=== PATIENT | female | born 1990 | race Caucasian/White ===

== ENCOUNTER 2020-12-31 20:25 | Emergency (ER) | payer SELFPAY ==
--- NOTE | ~2020-12-31 | XR_ITS ---
EXAMINATION: XR elbow RT min 3V DATE: 12/31/2020 21:00 INDICATION: Right elbow pain TECHNIQUE: Anteroposterior, two oblique and lateral views of the right elbow were obtained. COMPARISON: None. FINDINGS: Alignment is normal. No fracture or joint effusion. Joint spaces are normal. There is soft tissue swelling at the medial aspect of the elbow. IMPRESSION: 1. Soft tissue swelling without acute osseous abnormality. Reviewed, dictated and finalized at location A.
[2020-12-31 20:30] VITALS: BP 124/72; PULSE 108; RESP 18; TEMP 37.2; O2SAT 100
--- NOTE | 2020-12-31 20:46 | ED.UPPEXIN ---
HPI - Extremity Injury (Upper) General Chief Complaint: Extremity Injury, Upper Stated Complaint: Right arm pain, pulled by dog Time Seen by Provider: 12/31/20 20:44 Source: RN notes reviewed History of Present Illness HPI narrative: Patient presents emergency room from home for right elbow pain. Patient states that last night her dog jumped up on the bed she try to get the dog down and had hyperextended her right elbow in the process she notes pain in the right medial elbow since that time. States pain is worse with full extension of the right elbow she denies any wrist or shoulder pain states she is taken nothing for the pain at home she denies any numbness or tingling in the extremities or any other concern Related Data Allergies Allergy/AdvReac Type Severity Reaction Status Date / Time No Known Allergies Allergy Verified 12/31/20 21:21 Review of Systems Review of Systems: Gen.: Denies fevers or chills Musculoskeletal: See HPI Neuro: Denies numbness, tingling, weakness Skin: Denies rash Endo: Denies DM PMFSH Past Medical History Medical History (Updated 12/31/20 @ 21:29 by Edu Paris DO) Patient denies significant medical history Social History Social History (Updated 12/31/20 @ 20:47 by Edu Paris DO) Smoking status: Current every day smoker Exam Narrative: APPEARANCE: No acute distress, nontoxic, resting in bed Eyes: EOMI HEENT: Normocephalic, atraumatic, RESPIRATORY: No respiratory distress MUSCULOSKELETAl: Tender to palpation of the right medial elbow over the medial epicondyle pain with full extension of the elbow no tenderness over the posterior lateral elbow no tenderness of the right wrist or shoulder radial pulse 2+ neurovascular intact NEURO: Awake and alert. Following commands, speech normal, no focal deficits SKIN:: Warm, dry. Normal Color no rash or lesions Course Course Emergency Course: Discussed with patient results of workup and diagnosis. Discussed need for follow-up with primary care, proper use of medication, and reasons to return to the emergency department. Patient understands and agrees to current treatment plan Vital Signs Vital signs: Vital Signs Temperature 98.9 F 12/31/20 20:30 Pulse Rate 108 H 12/31/20 20:30 Respiratory Rate 18 12/31/20 20:30 Blood Pressure 124/72 12/31/20 20:30 Pulse Oximetry 100 12/31/20 20:30 Temperature 98.9 F 12/31/20 20:30 Pulse Rate 108 H 12/31/20 20:30 Respiratory Rate 18 12/31/20 20:30 Blood Pressure 124/72 12/31/20 20:30 Pulse Oximetry 100 12/31/20 20:30 MDM - Extremity Injury (Upper) Imaging Data Radiologist's impression: ITS Impressions Elbow X-Ray 12/31/20 21:12 IMPRESSION: 1. Soft tissue swelling without acute osseous abnormality. Discharge Plan Discharge Clinical Impression: Sprain of elbow, right Patient Disposition: Home, Self-Care Condition: Stable Instructions: Antibiotic Form, Elbow Sprain (ED) Additional Instructions: Return for increasing pain numbness or tingling in the extremity or any other symptoms of concern Prescriptions: New ibuprofen [IBU] 600 mg tablet 600 mg PO Q6H PRN (Reason: pain) Qty: 20 RF: 0 Follow-up/Referrals: Edu Singh MD [Physician] - (Follow-up in 1 to 2 days for further orthopedic treatment and evaluation) PHYSICIAN,FISH HOUSEKEEPER [Primary Care Provider] - Time of Disposition: 21:29
[2020-12-31] MEDS: IBUPROFEN 600 MG TABLET PO (21:29)
[2020-12-31 21:57] VITALS: BP 110/75; PULSE 104; RESP 20; TEMP 36.6; O2SAT 100
== END 2020-12-31 21:45 | disposition home or self-care (01) ==
PROVIDERS: Emergency Provider Emergency Medicine
DX: S53.401A Unspecified sprain of right elbow, initial encounter (principal); X50.0XXA Overexertion from strenuous movement or load, initial encounter; F17.210 Nicotine dependence, cigarettes, uncomplicated
CPT/HCPCS: 73080; 99283; A4565; A9270

== ENCOUNTER 2021-08-16 17:47 | Observation (INO) | payer OTHER, SELFPAY ==
--- NOTE | ~2021-08-16 | CT_ITS ---
EXAMINATION: CT abdomen pelvis w con DATE: 08/16/2021 21:58 INDICATION: Abdomen pain TECHNIQUE: Computed tomography (CT) of the abdomen and pelvis was performed with 100 cc Omnipaque 350 intravenous contrast. The dose-length product was 274.53 mGy-cm. Automated exposure control and iter ative reconstruction technique were employed. COMPARISON: None. FINDINGS: Lung bases are unremarkable. Heart size normal. No significant pleural or pericardial effus ion. No significant vascular abnormality. No lymphadenopathy. There is a thickened retrocecal appendi x with mild surrounding inflammation, consistent with acute appendicitis. No evidence for perforation or abscess. The liver, spleen, pancreas, adrenal glands and kidneys are unremarkable. No acute osseous abnormalit y. No lytic or blastic lesions. IMPRESSION: 1. Acute uncomplicated appendicitis. Reviewed, dictated and finalized at location B.
[2021-08-16 17:49] VITALS: BP 116/72; PULSE 52; RESP 14; TEMP 36.6; O2SAT 100
--- NOTE | 2021-08-16 18:32 | ED.ABDPAIN ---
HPI - Abdominal Pain General Chief Complaint: Abdominal Pain Stated Complaint: drinking last night/ n/v Time Seen by Provider: 08/16/21 18:15 History of Present Illness HPI narrative: 31-year-old female presents the emergency room with complaints of right lower quadrant abdominal pain and nausea vomiting since early this morning. Patient states that she had multiple alcoholic drinks last night, several hours later developed nausea vomiting with some abdominal cramping. Last menses was last week. States menstrual cycles are irregular. No concerns over STDs. Denies fever. Denies diarrhea or constipation. Related Data Home Medications Medication Instructions Recorded Confirmed No Home Medications 08/16/21 08/16/21 Allergies Allergy/AdvReac Type Severity Reaction Status Date / Time No Known Allergies Allergy Verified 08/16/21 17:48 Review of Systems Review of Systems: CONSTITUTIONAL: Denies fever, chills, or sweats. EYES: Denies visual changes, redness, or discharge. ENT: Denies rhinorrhea, congestion, sore throat, or otalgia. CARDIOVASCULAR: Denies chest pain, palpitations, or edema. RESPIRATORY: Denies cough or dyspnea. GASTROINTESTINAL: Reports lower abdominal pain, nausea, and vomiting GENITOURINARY: Denies dysuria or hematuria. SKIN: Denies rash or itching. MUSCULOSKELETAL: Denies back pain, joint pain, or myalgia. NEUROLOGIC: Denies headache, numbness, dizziness, or weakness. PSYCHIATRIC: Denies anxiety or depression. PMFSH Past Medical History Medical History Patient denies significant medical history Social History Social History Smoking status: Current every day smoker Exam Narrative: GENERAL: Well-appearing, well-nourished, and in no acute distress. HEAD: Normocephalic, atraumatic. EYES: PERRLA and EOMI. ENT: Nares clear, no rhinorrhea or epistaxis. Mucous membranes moist. Oropharynx without tonsillar hypertrophy exudate or other lesions. Bilateral TMs pearly irizarry nonbulging NECK: Supple. No adenopathy or masses. No carotid bruits or JVD CHEST: Clear to auscultation. No respiratory distress. No wheezes rales or rhonchi HEART: Regular rate and rhythm. No murmur heard. Normal peripheral pulses. ABDOMEN: Right lower quadrant pain, no rebound tenderness, negative heel strike, no psoas or obturator signs, no McBurney point tenderness, normal active bowel sounds. EXTREMITIES: Normal range of motion. No edema. SKIN: Warm, dry, no rash. NEURO: No focal deficits. Alert and oriented x3. PSYCH: Normal mood and affect. Course Course Emergency Course: 5: Spoke with Dr. Hernandez. He states he wants patient admitted for him and will follow her in the morning. Vital Signs Vital signs: Vital Signs Temperature 36.6 C 08/16/21 17:49 Pulse Rate 52 L 08/16/21 17:49 Respiratory Rate 14 08/16/21 17:49 Blood Pressure 116/72 08/16/21 17:49 Pulse Oximetry 100 08/16/21 17:49 Temperature 36.6 C 08/16/21 17:49 Pulse Rate 52 L 08/16/21 17:49 Respiratory Rate 14 08/16/21 17:49 Blood Pressure 116/72 08/16/21 17:49 Pulse Oximetry 100 08/16/21 17:49 MDM - Abdominal Pain MDM Narrative Medical decision making narrative: 31-year-old female presented to the emergency room with acute onset of right lower quadrant pain associated with nausea vomiting. CAT scan shows an acute uncomplicated appendicitis. CBC shows a elevated white count 18.4, CMP unremarkable. Zosyn was given. Lab Data Attestation: I reviewed the patient's lab results. Result diagrams: 08/16/21 18:48 08/16/21 18:48 Labs: Lab Results 08/16/21 08/16/21 08/16/21 Range/Units 18:48 18:48 21:06 WBC 18.4 H (4.5-10.0) K/mm3 RBC 4.73 (4.2-5.4) M/mm3 Hgb 13.9 (12.0-15.0) g/dL Hct 43.5 (37.0-47.0) % MCV 92.0 (80-100) fl MCH 29.4 (26-34) pg MCHC 32.0
[2021-08-16] MEDS: SODIUM CHLORIDE 0.9% IV 1,000 ML 999 ML IV CONT (18:53)
[2021-08-16] MEDS: ONDANSETRON INJ 4 MG/2 ML VIAL IV PUSH (18:53)
[2021-08-16] MEDS: DICYCLOMINE HCL INJ 20 MG/2 ML VIAL IM (18:53)
[2021-08-16 18:55] LABS: Basophils Percent Auto 0.2 % (0.2-1.2); Hematocrit 43.5 % (37.0-47.0); Hemoglobin 13.9 g/dL (12.0-15.0); Immature Granulocyte Percent A 0.5 % (0-0.5); Lymphocytes Absolute Auto 0.63 K/mm3 (0.9-3.2); Lymphocytes Percent Auto 3.4 % (18.3-44.2); Mean Corpuscular Hemoglobin 29.4 pg (26-34); Mean Platelet Volume 9.6 fl (7.4-10.4); Monocytes Absolute Auto 0.4 K/mm3 (0.1-0.6); Monocytes Percent Auto 2.3 % (2.6-8.5); Neutrophils Absolute Auto 17.2 K/mm3 (1.3-6.7); Neutrophils Percent Auto 93.6 % (45.5-73.1); Platelet Count Result 344 k/mm3 (150-375); Red Blood Count 4.73 M/mm3 (4.2-5.4); Red Cell Distribution Width 14.7 % (11.5-14.5); White Blood Count 18.4 K/mm3 (4.5-10.0)
[2021-08-16 19:13] LABS: Alanine Aminotransferase 23 U/L (4-35); Albumin Level 4.6 g/dL (3.5-5.1); Alkaline Phosphatase 55 U/L (38-126); Anion Gap 7 mmol/L (8-16); Aspartate Amino Transferase 34 U/L (14-36); Bilirubin,Total 0.5 mg/dL (0.2-1.3); Blood Urea Nitrogen 10 mg/dL (7-17); Calcium 9.2 mg/dL (8.4-10.2); Carbon Dioxide 29 mmol/L (22-30); Chloride 104 mmol/L (98-107); Estimated CRCL calculation 92 ml/min; Estimated Glomerular Filt Rate > 60; Glucose 113 mg/dL (65-110); Lipase 36 U/L (23-300); Potassium 4.1 mmol/L (3.4-5.0); Sodium 140 mmol/L (137-145)
[2021-08-16 21:31] LABS: Add Urine Microscopic? YES; Appearance Urine Clear (Clear); Bilirubin Urine Negative (Negative); Blood Urine Negative (Negative); Color Urine Yellow (Yellow); Glucose Urine UA Negative (Negative); Ketones Urine 2+ mg/dL (Negative); Leukocyte Esterase Ur Negative LEU/UL (Negative); Mucus Urine Rare /lpf; Nitrate Urine Negative (Negative); Protein Urine 1+ mg/dL (Negative); RBC Urine 0-2 /hpf (0-2); Specific Grav Ur 1.024 (1.001-1.035); Squamous Epithelial Cell Urine Moderate /hpf (Few); Urobilinogen Urine Negative mg/dL (<2.0)
[2021-08-16 23:12] VITALS: BP 115/80; PULSE 66; O2SAT 100
[2021-08-16 23:13] VITALS: O2SAT 100
[2021-08-17] VITALS (18 sets, daily range): BP systolic 102–130; BP diastolic 52–82; PULSE 53–103; RESP 12–24; TEMP 36.4–37.2; O2SAT 96–100; BMI 23.5
[2021-08-17] MEDS: SODIUM CHLORIDE 0.9% IV 1,000 ML 125 ML IV CONT ×2 (00:32→08:37)
--- NOTE | 2021-08-17 00:52 | PC.NURSE ---
This patient, Toyin Hernández, was admitted to Medical Room 346-01. Patient/family oriented to hospital policies and general routines including ID bracelet, bed and alarms, visiting hours, pain management, procedures, bathroom and other care routines, personal items, smoking policy, room service/diet, and visiting hours. Information on how to activate the Rapid Response Team has been discussed. Patient/Family are encouraged to report perceived risks to care and to ask questions if they do not understand what they are told or what they should do.
--- NOTE | 2021-08-17 11:06 | PC.NURSE ---
Pt went down for surgery at 1106. Pt is A+O x 3. 20 G in LAC working with normal limit. SBAR report handed to the SOFTWARE DATABASE ARCHITECT.
--- NOTE | 2021-08-17 11:26 | WPDANESEPPF ---
Anes - Initial Pre Proc Eval Procedure: Operation Date: 08/17/21 12:30 Proposed Procedures p Laparoscopic Appendectomy - Trey Hernandez MD Date/Time: 08/17/21 11:26 Surgeon: Trey Hernandez MD Pre Op Diagnosis: appendicitis Patient Data Age: 31 Gender: F Height: 1.57 m Weight: 58.4 kg Last Vital Signs Temp 37.1 C 08/17/21 08:30 Pulse 72 08/17/21 08:30 Resp 16 08/17/21 08:30 BP 115/66 08/17/21 08:30 Pulse Ox 100 08/17/21 08:30 Allergies Allergy/AdvReac Type Severity Reaction Status Date / Time No Known Allergies Allergy Verified 08/16/21 17:48 Home Medications Medication Instructions Recorded Confirmed Type No Home Medications 08/16/21 08/16/21 History Laboratory Tests 08/16/21 08/16/21 08/16/21 18:48 18:48 21:06 WBC 18.4 K/mm3 H K/mm3 (4.5-10.0) RBC 4.73 M/mm3 M/mm3 (4.2-5.4) Hgb 13.9 g/dL g/dL (12.0-15.0) Hct 43.5 % % (37.0-47.0) MCV 92.0 fl fl (80-100) MCH 29.4 pg pg (26-34) MCHC 32.0 g/dl g/dl (32-36) RDW 14.7 % H % (11.5-14.5) Plt Count 344 k/mm3 k/mm3 (150-375) MPV 9.6 fl fl (7.4-10.4) Immature Gran % (Auto) 0.5 % % (0-0.5) Neut % (Auto) 93.6 % H % (45.5-73.1) Lymph % (Auto) 3.4 % L % (18.3-44.2) [place] % (Auto) 2.3 % L % (2.6-8.5) Eos % (Auto) 0.0 % % (0-4.4) Baso % (Auto) 0.2 % % (0.2-1.2) Lymph # (Auto) 0.63 K/mm3 L K/mm3 (0.9-3.2) [place] # (Auto) 0.4 K/mm3 K/mm3 (0.1-0.6) Eos # (Auto) 0.0 K/mm3 K/mm3 (0-0.3) Baso # (Auto) 0.0 K/mm3 K/mm3 (0.0-0.1) Abs Immat Gran (auto) 0.10 K/mm3 H K/mm3 (0.00-0.031) Absolute Neuts (auto) 17.2 K/mm3 H K/mm3 (1.3-6.7) Absolute Nucleated RBC 0.0 K/mm3 K/mm3 (0.0-0.012) Nucleated RBC % 0.0 % % (0.0-0.2) Sodium 140 mmol/L mmol/L (137-145) Potassium 4.1 mmol/L mmol/L (3.4-5.0) Chloride 104 mmol/L mmol/L (98-107) Carbon Dioxide 29 mmol/L mmol/L (22-30) Anion Gap 7 mmol/L L mmol/L (8-16) BUN 10 mg/dL mg/dL (7-17) Creatinine 0.60 mg/dL L mg/dL (0.7-1.0) Estim Creat Clear Calc 92 ml/min ml/min Estimated GFR > 60 (59 - ) Glucose 113 mg/dL H mg/dL (65-110) Calcium 9.2 mg/dL mg/dL (8.4-10.2) Total Bilirubin 0.5 mg/dL mg/dL (0.2-1.3) AST 34 U/L U/L (14-36) ALT 23 U/L U/L (4-35) Alkaline Phosphatase 55 U/L U/L (38-126) Total Protein 8.0 g/dL g/dL (6.3-8.2) Albumin 4.6 g/dL g/dL (3.5-5.1) Lipase 36 U/L U/L (23-300) Urine Color Yellow (Yellow) Urine Appearance Clear (Clear) Urine pH 5.0 (5.0-9.0) Ur Specific [place] 1.024 (1.001-1.035) Urine Protein 1+ mg/dL H mg/dL (Negative) Urine Glucose (UA) Negative mg/dL mg/dL (Negative) Urine Ketones 2+ mg/dL H mg/dL (Negative) Ur Blood (Man) Negative (Negative) Urine Nitrate Negative (Negative) Urine Bilirubin Negative (Negative) Urine Urobilinogen Negative mg/dL mg/dL (<2.0) Leukocyte Esterase Rfl Negative LAURA/UL LAURA/UL (Negative) Urine RBC 0-2 /hpf /hpf (0-2) Urine WBC 4-6 /hpf H /hpf Ur Squamous Epith Cells Moderate /hpf H /hpf (Few) Urine Mucus Rare /lpf /lpf Patient hx anesthesia problems: none Family hx anesthesia problems: none Results Review: All pre-operative results and documents have been reviewed as part of the pre-operative evaluation. [facility] Past Medical History Medical History Patient denies significant medical history Social History Social H
[2021-08-17] MEDS: LACTATED RINGERS 1,000 ML 30 ML IV CONT ×2 (11:41→12:51)
--- NOTE | 2021-08-17 11:41 | PM.SD2 ---
Same Day Admit/Disch: [facility] History of Present Illness Chief complaint: appendicitis Narrative: Toyin Hernández is a 31 year old female who presented to the emergency room with right lower quadrant abdominal pain and vomiting. She has a history of being out drinking alcohol with her friends on Tuesday night. This ended around midnight and she went to bed around 1:00 a.m.. She woke up about 3 and ate a baked potato. She threw that up rather promptly. Following this she developed severe right lower quadrant abdominal pain that would not resolve. She came to the emergency room where she was noted to have tenderness in the right lower quadrant. She had an elevated white blood cell count. She had a CT scan which showed acute appendicitis. She has been admitted and started on IV antibiotics. She continues to have right lower quadrant abdominal pain and tenderness. Plans are to proceed with laparoscopic appendectomy. [facility] Social History Social History Smoking packs per day: 0.5 Smoking cigarettes per day: 10.0 Years smoked: 15 Smoking pack-years: 7.50 Smoking status: Current every day smoker Tobacco type: cigarettes Alcohol intake: current Drinks per week: 4 Substance use: never Spiritual care concerns: No Same Day Admit/Disch: Med Pre-admit Medications Home Medications Medication Instructions Recorded Confirmed Type No Home Medications 08/16/21 08/16/21 History hydrocodone-acetaminophen 1 - 2 tablet PO Q6H PRN #7 tablet 08/17/21 Rx Exam Const: General: cooperative, comfortable, no acute distress, alert and awake; No confusion Orientation/consciousness: No confusion HENMT: Head: normocephalic, atraumatic, no contusions and no scalp lesions Ears: external ears normal General nose exam: Normal external nose present Face and sinus: face symmetric and dry mucous membranes Mouth: Yes Normal oral and palatal mucosa present and Yes tongue normal Throat: posterior oropharynx normal Eyes: Conjunctivae: conjunctivae normal Sclera: sclerae normal Pupils: Equal, round and reactive pupils present EOM: EOMs intact bilaterally Neck: Neck: normal visual inspection, no lymphadenopathy, trachea midline, supple, nontender and no JVD Thyroid: abnormal thyroid Resp: Effort & Inspection: normal respiratory effort Auscultation: clear to auscultation bilaterally Cardio: Rate: regular rate Rhythm: regular rhythm GI: Inspection: normal to inspection, non-distended, scaphoid, no scars and other (Umbilical piercing) GI Palp: Yes Soft to palpation, Yes Tenderness to palpation present (GI) (Right lower quadrant with guarding), Yes Guarding due to palpation present (GI), No Hepatomegaly present, No Splenomegaly present, No Hernia present, No Palpable mass present and No Ascites present Auscultation: normal bowel sounds and normoactive bowel sounds Skin: General skin exam: normal color, turgor normal, no erythema and other (Multiple tattoos) Lesions: no lesions Rashes: no rashes Trauma: no lacerations or abrasions Neuro: General: No confusion Cranial nerves: Yes Equal, round and reactive pupils present Motor exam (neuro): Motor abnormalities not present Extrem: General: no clubbing, cyanosis or edema and edema Psych: Affect: normal affect Thought process: Normal thought process present Insight: Good insight present (Psych) DS: Data Data Completed and Pending Labs on day of discharge: Labs from last 24 hours 08/16/21 08/16/21 08/16/21 21:06 18:48 18:48 WBC 18.4 H RBC 4.73 Hgb 13.9 Hct 43.5 MCV 92.0 MCH 29.4 MCHC 32.0 RDW 14.7 H Plt Count 344 MPV 9.6 Immature Gran % (Auto) 0.5 Neut % (Auto) 93.6 H Lymph % (Auto) 3.4 L [place] % (Auto) 2.3 L Eos % (Auto) 0.0 Baso % (Auto) 0.2 Lymph # (Auto) 0.63 L [place] # (Auto) 0.4 Eos # (Auto) 0.0 Baso # (Auto) 0.0 Abs Immat Gran (auto) 0.10 H Ab
--- NOTE | 2021-08-17 11:52 | WPDHPUPDATE1 ---
History and Physical Update Update Date/Time: 08/17/21 11:52 History and Physical has been reviewed, including an updated exam of the patient. There are NO changes in the patient's condition. Risks, benefits, and alternatives have been discussed and questions answered. Patient agrees to proceed with procedure.
--- NOTE | 2021-08-17 11:54 | W.PM.PROC2 ---
Procedure Note - Detailed Date of Procedure 08/17/21 Pre-op Diagnosis Acute appendicitis Post-op Diagnosis Same Procedure Performed Laparoscopic appendectomy Surgeon Trye Hernandez MD Anesthesia General and Local (0.25% Marcaine with epinephrine) Indications Patient presented with vomiting right lower quadrant abdominal pain and leukocytosis. She had tenderness in the right lower quadrant with guarding. CT scan showed acute appendicitis. Findings Acute non perforated appendicitis Description of Procedure Patient was taken to surgery and induced into general anesthesia. The abdomen is prepped and draped. Trocars were placed in the usual fashion using 2 5 mm ports and a 10 11 port in the left lower quadrant. Patient was placed in Trendelenburg with the right-side elevated. The appendix was able to be found fairly easily. The appendix was mobilized and retracted anteriorly. Dissection was carried out in the mesoappendix. Cautery was used in the appendiceal artery was located. The appendiceal artery was thoroughly cauterized and divided. The base of the appendix was skeletonized. A Vicryl endoloop was used to ligate the appendix at its base. The appendix was amputated just above the ligature. The mucosa of the appendiceal stump was cauterized. The appendix was medially placed in an Endo-Catch bag and retrieved through the 10 11 left lower quadrant trocar site. The trocar was replaced and we reviewed the right lower quadrant and areas of dissection. All looked good with no evidence of bleeding or other issues. We evacuated CO2 and removed the trocar sleeves. Skin wounds were closed with subcuticular 4-0 Monocryl skin suture. The wounds were dressed with Exofin surgical adhesive. Patient was awakened and taken to recovery in good condition. Sponge needle counts were correct x2. Estimated Blood Loss -5 Drains No Packing No Pathology Yes (Appendix) Complications No immediate complications Condition Stable Disposition PACU
[2021-08-17] MEDS: ceFAZolin 2 GM/D5W 50 ML 2 GM/50 ML BAG IVPB (12:00)
[2021-08-17] MEDS: BUPIVACAINE/EPINEPHRINE 0.25% 10 ML VIAL 20 ML INFILTRATE (12:25)
[2021-08-17] MEDS: fentaNYL CITRATE INJ (*CRX) 100 MCG/2 ML VIAL 25 MCG IV PUSH ×4 (13:18→13:46)
[2021-08-17] MEDS: MORPHINE SULFATE (*CRX) 2 MG/ML INJ 1 MG IV PUSH (14:59)
[2021-08-17] MEDS: LACTATED RINGERS 1,000 ML 100 ML IV CONT (15:09)
[2021-08-17] MEDS: HYDROcodone/acetaminophen (*CRX) 10-325 MG TABLET 1 TAB PO (21:01)
[2021-08-18] MEDS: HYDROcodone/acetaminophen (*CRX) 10-325 MG TABLET 1 TAB PO (02:51)
[2021-08-18 07:03] VITALS: BP 113/67; PULSE 74; RESP 17; TEMP 36.4; O2SAT 99
[2021-08-18 08:00] VITALS: PULSE 74; RESP 17; O2SAT 99
[2021-08-18] MEDS: HYDROcodone/acetaminophen (*CRX) 5-325 MG TABLET 1 TAB PO (10:35)
--- NOTE | 2021-08-18 11:51 | PC.NURSE ---
RN was notified yesterday by a patient access member that pt cannot step down to outpatient observation because pt came through the ER. So pt was kept overnight for post observation and pain management.
== END 2021-08-18 11:45 | disposition home or self-care (01) ==
LOC: ANHED 23:48 → ANH3MED 08-17 00:41
PROVIDERS: Admitting Provider Surgery; Emergency Provider Nurse Practitioner Family; Visit Provider Surgery
PROC: 0DTJ4ZZ Resection of Appendix, Percutaneous Endoscopic Approach (ICD-10-PCS; CPT 44970; principal; 2021-08-17 12:30)
DX: K35.30 Acute appendicitis with localized peritonitis, without perforation or gangrene (principal); F17.210 Nicotine dependence, cigarettes, uncomplicated
CPT/HCPCS: 44970; 36415; 74177; 80053; 81001; 81025; 83690; 85025; 88304; 96361; 96365; 96372; 99285; A9270; G0378; G0379; J0330; J0500; J0690; J1100; J2250; J2270; J2405; J2543; J2704; J2710; J3010; J7030; J7120; Q9967

== ENCOUNTER 2024-03-25 15:46 | Emergency (ER) | payer SELFPAY ==
[2024-03-25 15:47] VITALS: BP 122/87; PULSE 112; RESP 16; TEMP 36.4; O2SAT 100
[2024-03-25 17:04] VITALS: BP 114/85; PULSE 100; RESP 18; O2SAT 100
--- NOTE | 2024-03-25 17:53 | ED.WOUNDLAC ---
HPI - Wound/Laceration General Chief Complaint: Wound/Laceration Stated Complaint: L great toe lac Time Seen by Provider: 03/25/24 17:00 Source: patient Mode of arrival: ambulatory Limitations: no limitations History of Present Illness HPI narrative: This is a 33 year old female that presents to the ER for laceration to the left sustained just prior to arrival. Reports she was scraping her fish tank. Accidentally cut her foot with the blade. Unsure of last tetanus vaccination. Denies decreased range of motion or numbness. Related Data Allergies Allergy/AdvReac Type Severity Reaction Status Date / Time No Known Allergies Allergy Verified 03/25/24 17:05 Review of Systems Review of Systems: CONSTITUTIONAL: Denies fever SKIN: Reports laceration NEUROLOGIC: Denies numbness All systems reviewed & are unremarkable except as noted in HPI and below PMFSH Past Medical History Medical History (Updated 03/25/24 @ 18:08 by Yady Shah PA-C) No active medical problems Social History Social History Smoking packs per day: 0.5 Smoking cigarettes per day: 10.0 Years smoked: 15 Smoking pack-years: 7.50 Smoking status: Current every day smoker Tobacco type: cigarettes Alcohol intake: current Drinks per week: 4 Substance use: never Spiritual care concerns: No Exam Narrative: GENERAL: Well-appearing, well-nourished, and in no acute distress. HEAD: Normocephalic, atraumatic. EYES: EOMI. EXTREMITIES: Normal range of motion. No edema. Normal DP pulse. 2cm linear laceration into subcutaneous tissue to the left foot dorsal surface at the base of the 1st MTP joint SKIN: Warm, dry, no rash. NEURO: No focal deficits. Alert and oriented x3. PSYCH: Normal mood and affect Course Course Emergency Course: Patient educated on wound care Vital Signs Vital signs: Vital Signs Temperature 97.6 F 03/25/24 15:47 Pulse Rate 112 H 03/25/24 15:47 Respiratory Rate 16 03/25/24 15:47 Blood Pressure 122/87 03/25/24 15:47 Pulse Oximetry 100 03/25/24 15:47 Oxygen Delivery Room Air 03/25/24 15:47 Temperature 97.6 F 03/25/24 15:47 Pulse Rate 100 03/25/24 17:04 Respiratory Rate 18 03/25/24 17:04 Blood Pressure 114/85 03/25/24 17:04 Pulse Oximetry 100 03/25/24 17:04 Oxygen Delivery Room Air 03/25/24 15:47 Procedures Laceration Laceration 1: Date: 03/25/24 Time: 18:11 Site: lower extremity Side (If applicable): left Size (cm): 2 Description: linear Depth: simple, single layer Pre-repair: irrigated extensively ====== Skin Level ====== Skin layer closed with: steri strips ====== Subcutaneous Layer ====== ====== Muscle Layer ====== ====== Tendon Layer ====== MDM - Wound/Laceration MDM Narrative Medical decision making narrative: patient presents to the emergency department for laceration to the left foot sustained just prior to arrival. She is neurovascularly intact. Tetanus updated. Wound irrigated. She refused sutures. I did place Steri-Strips and bandage her. Provided postop shoe. Will be started on prophylactic antibiotics. She is to follow up with primary provider. She was given warnings to return to the ER Differential Diagnosis Differential diagnosis: Likely laceration, abrasion and avulsion of skin Critical Care Time Critical Care Time Critical Care Time: No Discharge Plan Discharge Clinical Impression: Laceration Patient Disposition: Home, Self-Care Condition: Stable Instructions: Antibiotic Form, Laceration (ED), Steristrips (ED) Additional Instructions: Return to the emergency department if you experience fever, redness or swelling of your wound, abnormal drainage from your wound, or any other symptoms that are concerning to you. You may let the water run over the wound in the shower
[2024-03-25] MEDS: TETANUS,DIPHTHERIA,AC PERTUSSIS ADULT (0.5 ML) BOOSTRIX IM (17:59)
[2024-03-25] MEDS: IBUPROFEN 600 MG TABLET PO (18:01)
== END 2024-03-25 18:28 | disposition home or self-care (01) ==
PROVIDERS: Emergency Provider Physician Assistant
DX: S91.312A Laceration without foreign body, left foot, initial encounter (principal); Z23 Encounter for immunization; W27.8XXA Contact with other nonpowered hand tool, initial encounter
CPT/HCPCS: 90471; 90715; 99283; A9270